=== PATIENT | female | born 1970 | race Caucasian/White ===

== ENCOUNTER → 2020-03-23 12:35 | Outpatient (CLI) | payer BC, OTHER, SELFPAY ==
--- NOTE | ~2020-03-23 | US_ITS ---
US thyroid INDICATION: Iodine deficiency. Goiter. TECHNIQUE: Real-time sonographic images of the thyroid gland were obtained. COMPARISON: No prior studies for comparison. FINDINGS: The right thyroid lobe measures 6.2 x 1.6 x 1.8 cm. The left thyroid lobe measures 4.4 x 1 .3 x 1.6 cm. There is normal echotexture and echogenicity throughout the thyroid gland. In the right lobe there is a 2.2 x 1.4 x 1.7 cm heterogeneous predominantly hypoechoic, solid, wider than tall, lo bulated mass with microcalcifications, TR5. In the left lobe there are 2 small cysts, largest measuri ng 4 mm, likely benign. IMPRESSION: 1. 2.2 cm right thyroid mass, TR 5. Ultrasound-guided fine-needle aspiration biopsy recommended. Reviewed, dictated and finalized at location B. IMPRESSION: 1. 2.2 cm right thyroid mass, TR 5. Ultrasound-guided fine-needle aspiration b iopsy recommended.
== END ==
PROVIDERS: PCP Family Medicine; Visit Provider Family Medicine
DX: E01.0 Iodine-deficiency related diffuse (endemic) goiter (principal)
CPT/HCPCS: 76536

== ENCOUNTER → 2020-07-04 09:15 | Outpatient (CLI) | payer OTHER, SELFPAY ==
--- NOTE | ~2020-07-04 | US_ITS ---
EXAMINATION: US pelvic complete w TV EXAM DATE: 07/04/2020 09:45 INDICATION: Enlarged uterus . Breast cancer 2017 on tamoxifen. TECHNIQUE: Pelvic transabdominal and transvaginal sonogram was performed. There are multiple graysca le and Doppler images available for interpretation. There is no prior study for comparison. FINDINGS: Uterus measures 11.5 x 3.6 x 4.7 cm, and is morphologically normal. Endometrial stripe me asures 6 mm, within normal limits. There are nabothian cysts. There is no free pelvic fluid. Right adnexa: The ovary is not identified. There is no adnexal mass. Left adnexa: The ovary is not identified. There is no adnexal mass. IMPRESSION: 1. Unremarkable pelvic ultrasound exam. Reviewed, dictated and finalized at location A.
== END ==
PROVIDERS: PCP Family Medicine; Visit Provider Nurse Practitioner
DX: N85.2 Hypertrophy of uterus (principal)
CPT/HCPCS: 76830; 76856

== ENCOUNTER 2022-09-23 14:27 | Outpatient (CLI) | payer BC, SELFPAY ==
--- NOTE | ~2022-09-23 | DEXA_ITS ---
Bone Density Report Name: PATRICIA FERREIRA Age: 52 Sex: Female Ethnicity: White Date of : 1970 Indication: postmenopausal; screening for osteoporosis; cancer; Referring Provider: UNKNOWN, UNKNOWN Study: Bone densitometry was performed. Exam Date: September 23, 2022 Accession number: [id number] Bone Density: Region BMD T-score Z-score Classification AP Spine(L1-L4) 0.933 -1.0 -0.2 Normal Femoral Neck (Left) 0.747 -0.9 0.0 Normal Total Hip (Left) 0.931 -0.1 0.5 Normal Femoral Neck (Right) 0.802 -0.4 0.5 Normal Total Hip (Right) 0.930 -0.1 0.5 Normal Total Hip Mean 0.931 -0.1 0.5 Normal World Health Organization criteria for BMD impression classify patients as: Normal (T-score at or above -1.0), Osteopenia (T-score between -1.0 and -2.5), or Osteoporosis (T-score at or below -2.5). 10-year Fracture Risk: FRAX not reported because: All T-scores for Spine Total, Hip Total, Femoral Neck at or above -1.0 Clinical Information Provided by Patient: Has used the following medications: Vitamin D, Tamoxifin Has the following medical conditions: Cancer Patient maximum height was 65.5 Menopause Age: 46 No regular weight bearing exercise Drinks caffeinated beverages Onset of menses at age 12 Number of children 2 Impression: The patient has normal bone mass. Discussion: BONE DENSITY IS ABOVE THE MINIMUM DESIRABLE LEVEL AT ALL SKELETAL SITES TESTED. This patient?s bone mineral density is above the minimum desirable level (T-score -1.0 or better) at all sites measured. The patient should follow a healthful lifestyle (good nutrition with adequate calcium and vitamin D, and appropriate weight-bearing exercise). Follow-Up: Consider repeating this study in 5 years or sooner if there is some new clinical indication. Reported by: SANDRA on 09/23/2022 2:59:00 PM. Reviewed, dictated and finalized at location [facility] DAVIES
== END 2022-09-23 14:28 | disposition home or self-care (01) ==
PROVIDERS: PCP Family Medicine
DX: Z85.3 Personal history of malignant neoplasm of breast (principal); Z79.810 Long term (current) use of selective estrogen receptor modulators (SERMs); Z12.11 Encounter for screening for malignant neoplasm of colon; Z78.0 Asymptomatic menopausal state
CPT/HCPCS: 77080

== ENCOUNTER 2025-02-09 20:43 | Emergency (ER) | payer BC, SELFPAY ==
--- OUTSIDE RECORDS SUMMARY | 2025-02-09 20:45 | XMS_ITS | Clinical Summary ---
Author Organization [facility] Address [address] [place] [address] Care Team Providers Care Remote Ruby On Rails Developer Name Role Phone Barbara Coleman MD Primary Care Provider [phone] Ruy Mcallister MD Unavailable Barbara Wakefield PhD Unavailable [phone] Cristopher Buckner MD Unavailable Tita Braswell MD Unavailable [phone] Tram Cuba NP Unavailable [phone] Allergies Active Allergy Reactions Criticality Noted Date Comments Adhesive Redness Low 04/09/2020 Inflammation at connection sites Sulfa (Sulfonamide Antibiotics) Hives Medium 01/26/2015 Reaction: HIVES, Medications montelukast (SINGULAIR) 10 mg tablet Take 1 tablet (10 mg total) by mouth nightly allergies 8 Active cholecalciferol (VITAMIN D-3) 2000 unit capsuleIndicati ons:Osteoporosi s 1 capsule (2,000 Units total) 2 (two) times a day Active lisinopril-hydr oCHLOROthiazide (PRINZIDE,ZESTO RETIC) 10-12.5 mg per tabletIndicatio ns:hypertension every morning 2 9 Active albuterol 2.5 mg /3 mL (0.083 %) nebulizer solution Inhale 3 mL every 8 (eight) hours as needed for shortness of breath (related to allergies) 9 Active cetirizine (ZyrTEC) 10 mg tabletIndicatio ns:Allergic Rhinitis Take 1 tablet (10 mg total) by mouth every morning Active fenofibrate (TRIGLIDE) 160 mg tablet Take 1 tablet (160 mg total) by mouth daily Active Wixela Inhub 250-50 mcg/dose diskus inhaler Inhale 1 puff 2 (two) times a day 2 Active calcium carbonate (OS-FIDEL) 1,500 mg (600 mg elemental) tablet Take 1 tablet (1,500 mg total) by mouth Active rosuvastatin (CRESTOR) 10 mg tablet Take 1 tablet (10 mg total) by mouth daily 4 Active tamoxifen (NOLVADEX) 20 mg tabletIndicatio ns:Personal history of breast cancer,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 modulators (serms) Take 1 tablet (20 mg total) by mouth nightly 90 tablet 3 4 Active Active Problems Problem Noted Date Diagnosed Date watermaster (current) use of s elective estrogen receptor modulators (serms) 03/20/2018 Encounter for follow-up surveillance of breast c ancer 10/02/2017 History of breast cancer 10/12/2016 Cancer Staging:Clinical stage from 10/05/2016:Stage IA(cT1, cN0, cM0, G1, ER+, IN+, HER2-) - Signed by Barbara Wakefield, PhD on 03/25/2019 Pathologic stage from 10/27/2018: pT0, pN0(sn), cM0, G1, ER+, IN+, HER2- - Signed by Barbara Wakefield, PhD on 03/25/2019 Resolved Problems Problem Noted Date Diagnosed Date Resolved Date Screening for colon cancer 08/11/2022 0 05/02/2023 Overview (08/11/2022): Added automatically from request for surgery [id number] Thyroid nodule 04/07/2020 06/04/2021 Overview (04/07/2020): Added automatically from request for surgery [id number] Thyroid mass 04/02/2020 06/04/2021 Overview (04/29/2020): PROCEDURE PERFORMED (05/03/20, [place]) Right hemithyroidectomy. Immunizations Immunization Administration Dates Next Due Influenza, Quadrivalent, Spl it, Preservative Free, Intramuscular 06/22/2020,06/21/2018 Juliet (J&J) SARS-CoV-2 Vaccination 11/13/2020 Surgical History Surgery Date Site/Laterality Comments SECTION 1996, 2000 BREAST LUMPECTOMY 09/11/2016 - 09/10/2017 Left TONSILLECTOMY 09/11/1973 - 09/10/1974 THYROIDECTOMY, PARTIAL 04/11/2020 - 05/11/2020 Medical History Medical History Date Comments Breast cancer (HCC) Hypertension Thyroid disease Thyroid mass 04/02/2020 PROCEDURE PERFOR MED (05/03/20, [place]) Right hemithyroidectomy. Thyroid nodule 04/07/2020 Added automatica lly from request for surgery [id number] Thyroid cyst Allergies H/O seasonal allergies Screening for colon cancer 08/11/2022 Added automatically from request for surgery [id number] Family History Medical History Relation Name Comments blocked arteries Father pericarditis Father Lung cancer Maternal Grandfather smoker Skin cancer Maternal Grandfather Heart attack Maternal Grandmother Ovarian cancer Maternal Grandmother Hypertension Mother Uterine cancer Mother's Sister Heart attack Paternal Grandfather Heart failure Paternal Grandmother No Known Problems Sister Anesthesia problems Neg Hx Relation Name Status Comments Father Alive Maternal Grandfather Maternal Grandmother Mother Alive Mother's Sister Alive Paternal Grandfather Paternal Grandmother Sister Alive Social History Tobacco Use Types Packs/Day Years Used Date Smoking Tobacco: Never Smokeless Tobacco: Never Tobacco Cessation:Counseling Given: Not Answered Alcohol Use Standard Drinks/Week Comments Yes 0 (1 standard drink = 0.6 oz pur e alcohol) 1 glass of wine a month AUDIT-C Answer Date Recorded Q1: How often do you have a drink containing alc ohol? Monthly or less 11/15/2022 Q2: How many drinks containi ng alcohol do you have on a typical day when you are drinking? 1 or 2 11/15/2022 Q3: How often do you have si x or more drinks on one occasion? Never 11/15/2022 Personal Safety Answer Date Recorded Getting School Help Needed Denies 08/26 Comments No Sex and Gender Information Value Date Recorded Sex Assigned at Not on file Legal Sex Female 6:36 AM ACCOUNT DIRECTOR Gender Identity Female 05/14/2020 6:32 PM CDT Sexual Orientation Straight 05/14/2020 6: 32 PM CDT Obstetrics History Last Filed Vital Signs Vital Sign Reading Time Taken Comments Blood Pressure 128/83 05/21/2024 2:52 PM CDT Pulse 78 05/21/2024 2:52 PM CDT Temperature 36.7 C (98 F) 05/21/2024 2:52 PM CDT Respiratory Rate 18 05/21/2024 2:52 PM CDT Oxygen Saturation 97% 05/21/2024 2:5 2 PM CDT Inhaled Oxygen Concentration - - Weight 83.8 kg (184 lb 12.8 oz) 024 2:52 PM CDT with shoes Height 165.1 cm (5' 5) 05/21/2024 2:52 PM CDT Body Mass Index 30.75 05/21/2024 2:52 PM CDT Plan of Treatment Scheduled Procedures Name Priority Associated Diagnoses Date/Ti me COLONOSCOPY Personal history of breast cancer 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 modulators (serms) Encounter for follow-up surveillance of breast cancer Screen for colon cancer Encounter for screening colonoscopy Health Maintenance Due Date Last Done Comments Cervical Cancer Screening 1970 Depression Screening 1970 Hepatitis C Screening 1970 DTaP/Tdap/Td Vaccine (1 - Tdap) 1981 Hepatitis B Screening 1988 Regular Well Visit/Exam 18-64 1988 Pneumococcal vaccine <65 (1 of 2 - PCV) 1989 Zoster Vaccine (1 of 2) 1989 Covid-19 Vaccine (3 - 2023-2 5 season) 2024 08/29/2021, 11/13/2020 Breast Cancer Screening-Mammogram 11/06/2025 11/06/2024, 11/06/2023, 11/04/2022, Additional history exists Colon Cancer Screening-Colonoscopy 11/16/20272022 Influenza Vaccine Completed 08/21/2024, , 06/21/2018 Procedures Procedure Name Priority Date/Time Associated Diagnosis Comments SCREENING MAMMOGRAM BILATERAL W PEEWEE Schedule Routine, Read Routine (OP Routine) 11/06/2024 3:25 PM ACCOUNT DIRECTOR Screening mammogram, encounter for COLONOSCOPY 11/15/2022 8:55 AM ACCOUNT DIRECTOR from Last 3 Months or Most Recently Relevant to Health Maintenance Results * Screening Mammogram Bilateral W Peewee (11/06/2024 3:25 PM ACCOUNT DIRECTOR) Anatomical Region Laterality Modality Breast Bilateral Mammography Narrative 11/07/2024 3:58 PM ACCOUNT DIRECTOR Mammogram Technique: Bilateral Digital Breast Tomosynthesis, Bilateral C-view 2D Screening mammogram. Views obtained: bilateral craniocaudal and bilateral mediolateral oblique. Computer Aided Detection was performed. Mammogram Findings: The present examination has been compared to prior imaging studies performed at [facility] on 11/02/2021, 11/03/2022 and 11/06/2023. There are scattered areas of fibroglandular density. There are post breast conservation therapy changes in the left breast. There are no significant changes from the prior study. There is no suspicious abnormality in either breast. Impression: There is no mammographic evidence of malignancy. Annual screening mammography is recommended. OVERALL FINAL ASSESSMENT: BI-RADS CATEGORY 2: Benign. Procedure Note Fabi Morales MD - 11/07/2024 Mammogram Technique: Bilateral Digital Breast Tomosynthesis, Bilateral C-view 2D Screening mammogram. Views obtained: bilateral craniocaudal and bilateral mediolateral oblique. Computer Aided Detection was performed. Mammogram Findings: The present examination has been compared to prior imaging studies performed at [facility] on 11/02/2021, 11/03/2022 and 11/06/2023. There are scattered areas of fibroglandular density. There are post breast conservation therapy changes in the left breast. There are no significant changes from the prior study. There is no suspicious abnormality in either breast. Impression: There is no mammographic evidence of malignancy. Annual screening mammography is recommended. OVERALL FINAL ASSESSMENT: BI-RADS CATEGORY 2: Benign. us Self Screening Mammogram IMG MAMMO PROCEDURES Fi nal Result * COLONOSCOPY (11/15/2022 8:55 AM ACCOUNT DIRECTOR) Anatomical Region Laterality Modality Other Narrative Procedure Note Umair Estrada MD - 11/15/2022 8:[address] [facility] Patient Name: Raquel Madrigal Procedure Date: 11/15/2022 8:55 AM Date of : 1970 Admit Type: Outpatient Age: 52 Gender: Female Attending MD: Umair Estrada M.D. Room: [facility] ENDOSCOPY ROOM 06 Note Status: Finalized Procedure: Colonoscopy Indications: Screening for colorectal malignant neoplasm Referring MD: Providers: Umair Estrada M.D. Medicines: Monitored Anesthesia Care Complications: No immediate complications. Estimated Blood Loss: Estimated blood loss: none. Procedure: The benefits, risks and alternatives of theprocedure and sedation were discussed and informed consentwas obtained. All questions were answered. Please referto the signed informed consent document in the medical record. The scope was passed under direct vision.The [id number]-[id number] colonoscope was introduced through theanus and advanced to the cecum, identified byappendiceal orifice and ileocecal valve. The colonoscopy was performed without difficulty. The patient tolerated the procedure well. The quality of the bowel preparation was good. Scope withdrawal time was 11 minutes. Prep was administered in a split dose. Findings: The perianal and digital rectal examinations were normal. A diminutive polyp was found in the cecum. The polyp was removed witha cold biopsy forceps. Resection and retrieval were complete. A diminutive polyp was found in the sigmoid colon. The polyp wasremoved with a cold biopsy forceps. Resection and retrieval were complete. A few small-mouthed diverticula were found in the transverse colon. Non-bleeding internal hemorrhoids were found during retroflexion. The hemorrhoids were small. The exam was otherwise without abnormality. Impression: - One diminutive polyp in the cecum, removed with a cold biopsy forceps. Resected and retrieved. - One diminutive polyp in the sigmoid colon,removed with a cold biopsy forceps. Resected andretrieved. - Diverticulosis in the sigmoid colon and in the transverse colon. - Non-bleeding internal hemorrhoids. - The examination was otherwise normal. Recommendation: - Patient has a contact number available for emergencies. The signs and symptoms of potential delayed complications were discussed with thepatient. Return to normal activities tomorrow. Written discharge instructions were provided to thepatient. - High fiber diet. - Continue present medications. - Await pathology results. - Repeat colonoscopy in 5 years for surveillance. Umair Estrada M.D. Umair Estrada M.D. 11/15/2022 9:20:25 AM . Number of Addenda: 0 Note Initiated On: 11/15/2022 8:55 AM Recognized by the [employer] for promoting quality in endoscopy Umair Estrada MD ENDOSCOPY PROCEDURES Final Resul t from Last 3 Months or Most Recently Relevant to Health Maintenance Insurance ANTHEM ACCESS CHOICE BLUE ACC CHOICE OOS ANTHEM ACCESS CHOICE ANTHEM ACCESS CHOICE Care Teams Remote Ruby On Rails Developer Relationship Specialty Start Date End Date Barbara Coleman MD PCP - General 10/27/16 Ruy Mcallister MD [address] [facility] [address] [place] [address] Radiation Oncologist Radiation Oncology 03/25/19 Barbara Wakefield, PhD [address] [place] [address] Nurse Practitioner Radiation Oncology 03/25/19 Cristopher Buckner MD [address] [place] [address] Surgeon Surgical Oncology 03/25/19 Tita Braswell MD [address] [place] [address] Referring Physician Gynecology 10/26/20 Tram Cuba NP [address] [place] [address] Nurse Practitioner Medical Oncology 03/23/21
--- OUTSIDE RECORDS SUMMARY | 2025-02-09 20:45 | XMS_ITS | Encounter Summary ---
Author Organization [facility] Address [address] [place] [address] Care Team Providers Care Interior Design Director Name Role Phone Barbara Coleman MD Primary Care Provider [phone] Ruy Mcallister MD Unavailable Barbara Wakefield PhD Unavailable [phone] Jeromy Guillermo MD Unavailable Micki Amaot Unavailable [phone] Cristopher Buckner MD Unavailable [phone] Tita Braswell MD Unavailable [phone] Tram Cuba NP Unavailable [phone] Encounter Details Date Type Department Care Team (Late st Contact Info) Description 09/13/2018 Telephone [facility] Radiation Oncology [address] [facility] [place] [address] Elsi Epperson CMA Social History Tobacco Use Types Packs/Day Years Used Date Smoking Tobacco: Never Smokeless Tobacco: Never Alcohol Use Standard Drinks/Week Comments Yes 0 (1 standard drink = 0.6 oz pur e alcohol) occasionally Comments Unknown Sex and Gender Information Value Date Recorded Sex Assigned at Not on file Legal Sex Female 6:36 AM CELL TESTER Gender Identity Female 05/14/2020 6:32 PM CDT Sexual Orientation Straight 05/14/2020 6: 32 PM CDT documented as of this encounter Plan of Treatment Scheduled Procedures Name Priority Associated Diagnoses Date/Ti me COLONOSCOPY Personal history of breast cancer [facility] (current) use of selective estrogen receptor modulators (serms) Encounter for follow-up surveillance of breast cancer Screen for colon cancer Encounter for screening colonoscopy documented as of this encounter Visit Diagnoses Not on filedocumented in this encounter Care Teams Interior Design Director Relationship Specialty Start Date End Date Barbara Coleman MD PCP - General 10/27/16 Ruy Mcallister MD [address] [facility] [address] [place] [address] Radiation Oncologist Radiation Oncology 03/25/19 Barbara Wakefield, PhD [address] [facility] [address] [place] [address] Nurse Practitioner Radiation Oncology 03/25/19 Jeromy Guillermo MD [address] [facility] [address] [place] [address] Medical Oncologist/Church Administrator Medical Oncology 03/25/19 03/22/21 Micki Amato, OUTREACH REP [address] [facility] [address] [place] [address] Nurse Practitioner Certified Clinical Nurse Specialist 03/25/19 09/29/21 Cristopher Buckner MD [address] [facility] [address] [place] [address] Surgeon Surgical Oncology 03/25/19 Tita Braswell MD [address] [place] [id number] Referring Physician Gynecology 10/26/20 Tram Cuba NP [address] [place] [address] Nurse Practitioner Medical Oncology 03/23/21 documented as of this encounter
--- OUTSIDE RECORDS SUMMARY | 2025-02-09 20:45 | XMS_ITS | Referral Summary ---
Author Organization [facility] Address [address] [place] [address] Care Team Providers Care Shadow Graph Weight Operator Name Role Phone Barbara Coleman MD Primary Care Provider [phone] Ruy Mcallister MD Unavailable Barbara Wakefield PhD Unavailable [phone] Cristopher Buckner MD Unavailable [phone] Tita Braswell MD Unavailable [phone] Tram Cuba NP Unavailable Allergies Active Allergy Reactions Criticality Noted Date [...] 20 mg tabletIndicatio ns:Personal history of breast cancer,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elective estrogen receptor modulators (serms) Take 1 tablet (20 mg total) by mouth nightly 90 tablet 3 4 Active Active Problems Problem Noted Date Diagnosed Date 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 elective estrogen receptor modulators (serms) 03/20/2018 Encounter for follow-up surveillance of breast c ancer 10/02/2017 History of breast cancer 10/12/2016 Cancer Staging:Clinical stage from 10/05/2016:Stage IA(cT1, cN0, cM0, G1, ER+, CA+, HER2-) - Signed by Barbara Wakefield, PhD on 03/25/2019 Pathologic stage from 10/27/2018: pT0, pN0(sn), cM0, G1, ER+, CA+, HER2- - Signed by Barbara Wakefield, PhD on 03/25/2019 Resolved Problems Problem Noted Date Diagnosed Date Resolved Date Screening for colon cancer 08/11/2022 0 05/02/2023 Overview (08/11/2022): Added automatically from request for surgery [id number] Thyroid nodule 04/07/2020 06/04/2021 Overview (04/07/2020): Added automatically from request for surgery [id number] Thyroid mass 04/02/2020 06/04/2021 Overview (04/29/2020): PROCEDURE PERFORMED (05/03/20, Arash) Right hemithyroidectomy. Immunizations Immunization Administration Dates Next Due Influenza, Quadrivalent, Spl it, Preservative Free, Intramuscular 06/22/2020,06/21/2018 Juliet (J&J) SARS-CoV-2 Vaccination 11/13/2020 Social History Tobacco Use Types Packs/Day Years [...] on file Legal Sex Female 6:36 AM COMPRESSOR SERVICE TECHNICIAN Gender Identity Female 05/14/2020 6:32 PM CDT Sexual Orientation Straight 05/14/2020 6: 32 PM CDT Last Filed Vital Signs Vital Sign Reading [...] me COLONOSCOPY Personal history of breast cancer 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elective estrogen receptor modulators (serms) Encounter for follow-up surveillance of breast cancer Screen for colon cancer Encounter for screening colonoscopy Procedures Procedure Name Priority Date/Time Associated Diagnosis Comments SCREENING MAMMOGRAM BILATERAL W PEEWEE Schedule Routine, Read Routine (OP Routine) 11/06/2024 3:25 PM COMPRESSOR SERVICE TECHNICIAN Screening mammogram, encounter for COLONOSCOPY 11/15/2022 8:55 AM COMPRESSOR SERVICE TECHNICIAN from Last 3 Months or Most Recently Relevant to Health Maintenance Results * Screening Mammogram Bilateral W Peewee (11/06/2024 3:25 PM COMPRESSOR SERVICE TECHNICIAN) Anatomical Region Laterality Modality Breast Bilateral Mammography Narrative 11/07/2024 3:58 PM COMPRESSOR SERVICE TECHNICIAN Mammogram Technique: Bilateral Digital Breast Tomosynthesis, Bilateral C-view 2D Screening mammogram. Views obtained: bilateral craniocaudal and bilateral mediolateral oblique. Computer Aided Detection was performed. Mammogram Findings: The present examination has been compared to prior imaging studies performed at [facility] on 11/02/2021, 11/03/2022 and 11/06/2023. There are [...] compared to prior imaging studies performed at [facility] on 11/02/2021, 11/03/2022 and 11/06/2023. There are [...] nal Result * COLONOSCOPY (11/15/2022 8:55 AM COMPRESSOR SERVICE TECHNICIAN) Anatomical Region Laterality Modality Other Narrative Procedure Note Umair Estrada MD - 11/15/2022 8:55 AM CST [facility] ENDOSCOPY Patient Name: Raquel Madrigal Procedure Date: 11/15/2022 8:55 AM Date of : 1970 Admit Type: Outpatient Age: 52 Gender: Female Attending MD: Umair Estrada M.D. Room: [facility] ENDOSCOPY ROOM 06 Note Status: Finalized Procedure: [...] The scope was passed under direct vision.The [id number]-[id number] colonoscope was introduced through theanus and advanced [...] On: 11/15/2022 8:55 AM Recognized by the [employer] for promoting quality in endoscopy us Umair Estrada MD ENDOSCOPY PROCEDURES Final Resul t from Last 3 Months or Most Recently Relevant to Health Maintenance Insurance ANTHEM ACCESS CHOICE [place] ACC CHOICE OOS ANTHEM ACCESS CHOICE ANTHEM ACCESS CHOICE Care Teams Shadow Graph Weight Operator Relationship Specialty Start Date End Date Barbara Coleman MD PCP - General 10/27/16 Ruy Mcallister MD [address] [facility] [address] [place] [address] Radiation Oncologist Radiation Oncology 03/25/19 Barbara Wakefield, PhD [address] [facility] [address] [place] [address] Nurse Practitioner Radiation Oncology 03/25/19 Cristopher Buckner MD [address] [facility] [address] [place], [place] [id number] Surgeon Surgical Oncology 03/25/19 Tita Braswell MD [address] [place] [address] Referring Physician Gynecology 10/26/20 Tram Cuba NP [address] [place] [address] Nurse Practitioner Medical Oncology 03/23/21
--- OUTSIDE RECORDS SUMMARY | 2025-02-09 20:45 | XMS_ITS | Clinical Summary ---
Author Organization [facility] Address [address] [place] [address] Care Team Providers Care Radio Adjuster Name Role Phone Yanet Coleman APRN-DAYAMI Primary Care Provider Charisse vailable Source Comments [facility],non-owned Affiliates and Associated Physician Practices is amultiple site organization consisting of ambulatory clinics and hospital sitesin [place], [place], [place] and [place]. This disclosure is being madepursuant to the Care Everywhere program and may not contain all information available regarding this patient. Last updated 18.[facility] [employer] Allergies Active Allergy Reactions Criticality Noted Date Comments Sulfa Drugs Urticaria Medium 01/12/2019 Medications * Be aware that medications may not be up to date on this document. Alwaysverify current medications with the patient. amLODIPine (NORVASC) 10 MG tablet Take 10 mg by mouth once daily Active lisinopril (PRINIVIL; ZESTRIL) 2.5 MG tablet Take 2.5 mg by mouth once daily Active Cetirizine HCl (ZYRTEC PO) Active Montelukast Sodium (SINGULAIR PO) Active beclomethasone dipropionate (QVAR) 80 MCG/ACT inhaler Inhale 1 puff by mouth 2 times daily Active tamoxifen (NOLVADEX) 10 MG tablet Take 10 mg by mouth 2 times daily Active vitamin D, cholecalciferol, 2000 units tablet Take 2,000 Units by mouth once daily Active benzonatate (TESSALON) 200 MG capsuleIndication s:Cough Take 1 capsule by mouth 3 times daily as needed for Cough 30 capsule 9 Active Cetirizine HCl (ZYRTEC ALLERGY PO) Active fluticasone hfa 110 (FLOVENT HFA) 110 MCG/ACT inhaler Active LISINOPRIL-HYDROC HLOROTHIAZIDE PO Act hudson montelukast (SINGULAIR) 10 MG tablet Active Tamoxifen Citrate Micronized POWD Acti ve Social History Tobacco Use Types Packs/Day Years Used Date Smoking Tobacco: Never Smokeless Tobacco: Never Comments Unknown Sex and Gender Information Value Date Recorded Sex Assigned at Female 02/15/2021 8:44 AM CDT Legal Sex Female 6:34 PM CDT Gender Identity Female 02/15/2021 8:44 AM CDT Sexual Orientation Straight 02/15/2021 8: 44 AM CDT Last Filed Vital Signs Vital Sign Reading Time Taken Comments Blood Pressure 120/66 02/13/2021 2:17 PM CDT Pulse 70 02/13/2021 2:17 PM CDT Temperature 36.8 C (98.3 F) 02/13/2021 2:17 PM CDT Respiratory Rate 20 02/13/2021 2:17 PM CDT Oxygen Saturation 97% 01/12/2019 10:06 AM CDT Inhaled Oxygen Concentration - - Weight 86.2 kg (190 lb) 01/12/2019 10:06 AM CDT Height 162.6 cm (5' 4) 01/12/2019 10:06 AM CDT Body Mass Index 32.61 01/12/2019 10:06 AM CDT Plan of Treatment Health Maintenance Due Date Last Done Comments COLOGUARD (AGES 45-75) - COL ON CA SCREENING 1970 COLON MONITORING 1970 COLONOSCOPY - COLON CA SCREENING 1970 CT COLONOGRAPHY - COLON CA SCREENING 1970 Colorectal Cancer Screening 1970 FIT - COLON CA SCREENING 1970 FLEX SIG - COLON CA SCREENING 1970 LIPID TESTING 1970 MAMMOGRAM 1970 HIV SCREENING 1985 HEPATITIS C SCREENING 06/22/1988 DTAP/TDAP/TD VACCINES (1 - Tdap) 1989 HEPATITIS B VACCINE (1 of 3 - 19+ 3-dose series) 1989 SCREENING FOR DIABETES 01/12/2019 PNEUMOCOCCAL VACCINE 50+ (1 of 1 - PCV) 2020 ZOSTER VACCINE (1 of 2) 2020 COVID-19 VACCINE (2 - 2023-2 5 season) 2024 11/13/2020 DEPRESSION SCREENING 09/11/2024 INFLUENZA VACCINE (Season Ended) 2025 06/22/2020, 06/21/2018 HIB VACCINE Aged Out No longer eligi ble based on patient's age to complete this topic HPV VACCINE Aged Out No longer eligi ble based on patient's age to complete this topic MENINGOCOCCAL (Group B) VACCINE SHARED DECISION-MAKING Aged Out No longer eligible based on patient's age to complete this topic MENINGOCOCCAL GROUPS A/C/Y/W VACCINE Aged Out No longer eligible b ased on patient's age to complete this topic Insurance [facility] Address: [address] [address] [place] [address] [facility] Care Teams Radio Adjuster Relationship Specialty Start Date End Date Yanet Coleman APRN-DAYAMI PCP - General Nurse Practitioner 01/12/19
--- OUTSIDE RECORDS SUMMARY | 2025-02-09 20:45 | XMS_ITS | Continuity of Care Document ---
Author Organization [facility] Address [address] [place] [address] Phone Care Team Providers Care Delivery Merchandiser Name Role Phone Sravan Aviles MD Unavailable Unavailable Allergies, Adverse Reactions, Alerts Substance Reaction Status Criticality Sulfa (Sulfonamide Antibiotics) Active No Information Medications Medication Instructions Dosage Effective Dates (start - stop) Status Comments amlodipine 5 mg tablet take 1 tablet by oral route every day 5 MG - Active Zyrtec 10 mg tablet take 1 tablet by ora l route every day 10 MG - Active Singulair 10 mg tablet take 1 tablet by oral route every day in the evening 10 MG - Active Qvar 80 mcg/actuation Metered Aerosol oral inhaler inhale 2 puff by inhalation route 2 times every day - Active tamoxifen 20 mg tablet take 1 tablet by oral route every day 20 MG - Active Procedures Procedure Date OFFICE/OUTPATIENT VISIT EST OFFICE/OUTPATIENT VISIT [facility] Advance Directives Directive Yes / No Effective Date File Name No Information Encounters Encounter Description Practice Location Reason(s) For Visit Diagnoses Date Provider Providers Copied on Encounter [facility], [address], [place], [address], [place] tel:[phone] [facility] No Information 7 Stefan Hinson. [address], [place], [place], [address] . tel: [phone] OFFICE/OUTPA TIENT VISIT EST [facility], [address], [place], [address], [place] tel:[phone] [facility] Left shoulder tendinitisOther cervical disc degeneration at C6-C7 level 3-201 7 Stefan Hinson. [address], [place], [place], [address] . tel: [phone] OFFICE/OUTPA TIENT VISIT [facility], [address], [place], [address], [phone] [facility] Body mass index (BMI) 33.0-33.9, adultLeft shoulder tendinitis 2201 7 Stefan Hinson. [address], [place], [place], [address] . tel: [phone] Family History Family Member Type Diagnosis Age At Onset Sister Problem (finding) Alive and well Payers Payer name Insurance type Covered republican ID Siobhan dukes(s) Derrek Open Access Plus E2 OT [id number] Social History Type Description Quantity Date Captured Comments Alcohol Use Details Unknown Caffeine Use Details Unknown Tobacco Use Status No Information Smoking Status No Information Sex Female Chief Complaint And Reason For Visit No Information Reason For Referral Reason For Referral No Information Plan Of Treatment Date Type Action Status Referral Ordered: RADEX SPI CRV 2/3 VIEWS ordered Referral Ordered: RADEX OSMEL COMPL MINIMUM 2 VIEWS LT ordered History Of Present Illness Encounter Date Complaint History Of Prese nt Illness No Information Functional Status Date Functional Assessmen t No Information Instructions Date Instruction Additional Infor mation Giving encouragement to exercise Related to Body mass index (BMI) 33.0-33.9, adult Apply ice as tolerated. Related to Left shoulder tendinitis Home exercise program Related to Left shoulder tendinitis Assessments Type Assessment Date No Information Patient Care Teams Name Effective Dates (start - stop) Status Members No Information
--- OUTSIDE RECORDS SUMMARY | 2025-02-09 20:45 | XMS_ITS | Continuity of Care Document ---
Author Organization [facility] Address [address] [place] [address] Phone Care Team Providers Care Loader Name Role Phone Reynoso OD, Rodolfo Unavailable Unavailable Procedures Procedure Date Eye Exam & Treatment Refraction Eye Exam Established Pt Advance Directives Directive Yes / No Effective Date File Name No Information Encounters Encounter Description Practice Location Reason(s) For Visit Diagnoses Date Provider Providers Copied on Encounter [facility], [address] [place] [address] [address], [place], [place], [address], tel:[phone] [address] [facility] No Information 2-200 9 Reynoso OD Rodolfo. [address], [place], [place], [facility], . tel:[phone] [facility], [address] [place] [address] [address], [place], [place], [address], tel:[phone] [facility] No Information 4-200 8 Reynoso OD Rodolfo. [address], [place], [address], [place]. tel:[phone] Family History Family Member Type Diagnosis Age At Onset No Information Payers Payer name Insurance type Covered green party ID Authoriza tion(s) BCBS [place] Out Of [place] [id number] Social History Type Description Quantity Date Captured Comments Sex Female Smoking Status No Information Chief Complaint And Reason For Visit No Information Reason For Referral Reason For Referral No Information History Of Present Illness Encounter Date Complaint History Of Prese nt Illness No Information Functional Status Date Functional Assessmen t No Information Instructions Date Instruction Additional Infor mation No Information Assessments Type Assessment Date No Information Patient Care Teams Name Effective Dates (start - stop) Status Members No Information
[2025-02-09 20:56] VITALS: BP 132/82; PULSE 95; RESP 17; TEMP 36.4; O2SAT 95
--- OUTSIDE RECORDS SUMMARY | 2025-02-09 22:43 | XMS_ITS | Clinical Summary ---
Author Organization [facility] Address [address] [place] [address] Care Team Providers Care Induction Heat Treater Name Role Phone Yanet Coleman APRN-DAYAMI Primary Care Provider Charisse vailable Source Comments [facility],non-owned Affiliates and Associated Physician Practices is amultiple site organization consisting of ambulatory clinics and hospital sitesin [place], [place], [place] and [place]. This disclosure is being madepursuant to the Care Everywhere program and may not contain all information available regarding this patient. Last updated 18.[facility] [employer] Allergies Active Allergy Reactions Criticality Noted Date [...] patient's age to complete this topic Insurance [facility] Care Teams Induction Heat Treater Relationship Specialty Start Date End Date Yanet Coleman APRN-DAYAMI PCP - General Nurse Practitioner 01/12/19
--- OUTSIDE RECORDS SUMMARY | 2025-02-09 22:43 | XMS_ITS | Continuity of Care Document ---
Author Organization [facility] Address [address] [place] [address] Phone Care Team Providers Care Music Grapher Name Role Phone Sravan Aviles MD Unavailable [...] Procedure Date OFFICE/OUTPATIENT VISIT EST OFFICE/OUTPATIENT VISIT [facility] Advance Directives Directive Yes / No Effective Date File Name No Information Encounters Encounter Description Practice Location Reason(s) For Visit Diagnoses Date Provider Providers Copied on Encounter [facility], [address], [place], [address], [place] tel:[phone] [facility] No Information 7 Stefan Hinson. [address], [place], [place], [address] . tel: [phone] OFFICE/OUTPA TIENT VISIT EST [facility], [address], [place], [address], [place] tel:[phone] [facility] Left shoulder tendinitisOther cervical disc degeneration at C6-C7 level 3-201 7 Stefan Hinson. [address], [place], [place], [address] . tel: [phone] OFFICE/OUTPA TIENT VISIT [facility], [address], [place], [address], [phone] [facility] Body mass index (BMI) 33.0-33.9, adultLeft shoulder tendinitis 2201 7 Stefan Hinson. [address], [place], [place], [address] . tel: [phone] Family History Family Member Type Diagnosis Age At Onset Sister Problem (finding) Alive and well Payers Payer name Insurance type Covered constitution party ID Siobhan dukes(s) Derrek Open Access Plus E2 OT [id number] Social History Type Description Quantity Date Captured [...]
--- OUTSIDE RECORDS SUMMARY | 2025-02-09 22:43 | XMS_ITS | Continuity of Care Document ---
Author Organization [facility] Address [address] [place] [address] Phone Care Team Providers Care Reset Merchandiser Name Role Phone Reynoso OD, Rodolfo Unavailable Unavailable Procedures Procedure Date Eye Exam & Treatment Refraction Eye Exam Established Pt Advance Directives Directive Yes / No Effective Date File Name No Information Encounters Encounter Description Practice Location Reason(s) For Visit Diagnoses Date Provider Providers Copied on Encounter [facility], [address] [place] [address] [address], [place], [place], [address], tel:[phone] [address] [facility] No Information 2-200 9 Reynoso OD Rodolfo. [address], [place], [place], [facility], . tel:[phone] [facility], [address] [place] [address] [address], [place], [place], [address], tel:[phone] [facility] No Information 4-200 8 Reynoso OD Rodolfo. [address], [place], [address], [place]. tel:[phone] Family History Family Member Type Diagnosis Age At Onset No Information Payers Payer name Insurance type Covered constitution party ID Authoriza tion(s) BCBS [place] Out Of [place] [id number] Social History Type Description Quantity Date Captured [...]
--- OUTSIDE RECORDS SUMMARY | 2025-02-09 22:43 | XMS_ITS | Clinical Summary ---
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 (serms) Take 1 tablet (20 mg total) by mouth nightly 90 tablet 3 4 Active Active Problems Problem Noted Date Diagnosed Date 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 (serms) 03/20/2018 Encounter for follow-up surveillance of breast c ancer 10/02/2017 History of breast cancer 10/12/2016 Cancer Staging:Clinical stage from 10/05/2016:Stage IA(cT1, cN0, cM0, G1, ER+, HI+, HER2-) - Signed by Barbara Wakefield, PhD on 03/25/2019 Pathologic stage from 10/27/2018: pT0, pN0(sn), cM0, G1, ER+, HI+, HER2- - Signed by Barbara Wakefield, PhD on 03/25/2019 Resolved Problems Problem Noted Date Diagnosed Date Resolved Date Screening for colon cancer 08/11/2022 0 05/02/2023 Overview (08/11/2022): Added automatically from request for surgery [id number] Thyroid nodule 04/07/2020 06/04/2021 Overview (04/07/2020): Added automatically from request for surgery [id number] Thyroid mass 04/02/2020 06/04/2021 Overview (04/29/2020): PROCEDURE [...] Added automatica lly from request for surgery [id number] Thyroid cyst Allergies H/O seasonal allergies Screening for colon cancer 08/11/2022 Added automatically from request for surgery [id number] Family History Medical History Relation Name Comments [...] on file Legal Sex Female 6:36 AM FERRY PILOT Gender Identity Female 05/14/2020 6:32 PM CDT [...] me COLONOSCOPY Personal history of breast cancer 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 Views obtained: bilateral craniocaudal and bilateral mediolateral oblique. Computer Aided Detection was performed. Mammogram Findings: The present examination has been compared to prior imaging studies performed at [facility] on 11/02/2021, 11/03/2022 and 11/06/2023. There [...] compared to prior imaging studies performed at [facility] on 11/02/2021, 11/03/2022 and 11/06/2023. There [...] nal Result * COLONOSCOPY (11/15/2022 8:55 AM FERRY PILOT) Anatomical Region Laterality Modality Other Narrative Procedure Note Umair Estrada MD - 11/15/2022 8:55 AM CST [facility] ENDOSCOPY Patient Name: Raquel Madrigal Procedure Date: 11/15/2022 8:55 AM Date of : 1970 Admit Type: Outpatient Age: 52 Gender: Female Attending MD: Umair Estrada M.D. Room: [facility] ENDOSCOPY ROOM 06 Note Status: Finalized [...] The scope was passed under direct vision.The [id number] colonoscope was introduced through theanus and advanced [...] On: 11/15/2022 8:55 AM Recognized by the [place] [employer] for promoting quality in endoscopy Umair Estrada MD ENDOSCOPY PROCEDURES Final Resul t from Last 3 Months or Most Recently Relevant to Health Maintenance Insurance ANTHEM ACCESS CHOICE BLUE ACC CHOICE O[place] ANTHEM ACCESS CHOICE ANTHEM ACCESS CHOICE Care Teams Farm Contractor Buyer Relationship Specialty Start Date End Date Barbara Coleman MD PCP - General 10/27/16 Ruy Mcallister MD [address] [facility] [address] [place] [address] Radiation Oncologist Radiation Oncology 03/25/19 Barbara Wakefield, PhD [address] [place] [address] Nurse Practitioner Radiation Oncology 03/25/19 Cristopher Buckner MD [address] [place] [address] Surgeon Surgical Oncology 03/25/19 Tita Braswell MD [address] [place] [address] Referring Physician Gynecology 10/26/20 Tram Cuba NP [address] [place] [address] Nurse Practitioner Medical Oncology 03/23/21
--- OUTSIDE RECORDS SUMMARY | 2025-02-09 22:43 | XMS_ITS | Referral Summary ---
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 (serms) Take 1 tablet (20 mg total) by mouth nightly 90 tablet 3 4 Active Active Problems Problem Noted Date Diagnosed Date 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 (serms) 03/20/2018 Encounter for follow-up surveillance of breast c ancer 10/02/2017 History of breast cancer 10/12/2016 Cancer Staging:Clinical stage from 10/05/2016:Stage IA(cT1, cN0, cM0, G1, ER+, IA+, HER2-) - Signed by Barbara Wakefield, PhD on 03/25/2019 Pathologic stage from 10/27/2018: pT0, pN0(sn), cM0, G1, ER+, IA+, HER2- - Signed by Barbara Wakefield, PhD on 03/25/2019 Resolved Problems Problem Noted Date Diagnosed Date Resolved Date Screening for colon cancer 08/11/2022 0 05/02/2023 Overview (08/11/2022): Added automatically from request for surgery [id number] Thyroid nodule 04/07/2020 06/04/2021 Overview (04/07/2020): Added automatically from request for surgery [id number] Thyroid mass 04/02/2020 06/04/2021 Overview (04/29/2020): PROCEDURE [...] on file Legal Sex Female 6:36 AM FINISHER ACCORDION Gender Identity Female 05/14/2020 6:32 PM CDT [...] me COLONOSCOPY Personal history of breast cancer 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 (serms) Encounter for follow-up surveillance of breast cancer Screen for colon cancer Encounter for screening colonoscopy Procedures Procedure Name Priority Date/Time Associated Diagnosis Comments SCREENING MAMMOGRAM BILATERAL W PEEWEE Schedule Routine, Read Routine (OP Routine) 11/06/2024 3:25 PM FINISHER ACCORDION Screening mammogram, encounter for COLONOSCOPY 11/15/2022 8:55 AM FINISHER ACCORDION from Last 3 Months or Most Recently Relevant to Health Maintenance Results * Screening Mammogram Bilateral W [place] (11/06/2024 3:25 PM FINISHER ACCORDION) Anatomical Region Laterality Modality Breast Bilateral Mammography Narrative 11/07/2024 3:58 PM FINISHER ACCORDION Mammogram Technique: Bilateral Digital Breast Tomosynthesis, Bilateral C-view 2D Screening mammogram. Views obtained: bilateral craniocaudal and bilateral mediolateral oblique. Computer Aided Detection was performed. Mammogram Findings: The present examination has been compared to prior imaging studies performed at [facility] on 11/02/2021, 11/03/2022 and 11/06/2023. [...] compared to prior imaging studies performed at [facility] on 11/02/2021, 11/03/2022 and 11/06/2023. [...] nal Result * COLONOSCOPY (11/15/2022 8:55 AM FINISHER ACCORDION) Anatomical Region Laterality Modality Other Narrative Procedure Note Umair Estrada MD - 11/15/2022 8:55 AM [facility] ENDOSCOPY Patient Name: Raquel Madrigal Procedure Date: 11/15/2022 8:55 AM Date of : 1970 Admit Type: Outpatient Age: 52 Gender: Female Attending MD: Umair Estrada M.D. Room: [facility] ENDOSCOPY ROOM 06 Note Status: Finalized [...] The scope was passed under direct vision.The [id number]-HN620M colonoscope was introduced through theanus and advanced [...] Repeat colonoscopy in 5 years for surveillance. Umari Estrada M.D. Umair Estrada M.D. 11/15/2022 9:20:25 AM . Number of Addenda: 0 Note Initiated On: 11/15/2022 8:55 AM Recognized by the [place] for promoting quality in endoscopy us Umair Estrada MD ENDOSCOPY PROCEDURES Final Resul t from Last 3 Months or Most Recently Relevant to Health Maintenance Insurance ANTHEM ACCESS CHOICE [place] ACC CHOICE [place] ANTHEM ACCESS CHOICE ANTHEM ACCESS CHOICE Care Teams Prepress Technician Relationship Specialty Start Date End Date Barbara Coleman MD PCP - General 10/27/16 Ruy Mcallister MD [address] [facility] [address] [place] [address] Radiation Oncologist Radiation Oncology 03/25/19 Barbara Wakefield, PhD [address] [facility] [address] [place] [address] Nurse Practitioner Radiation Oncology 03/25/19 Cristopher Buckner MD [address] [facility] [address] [place], [place] [id number] Surgeon Surgical Oncology 03/25/19 Tita Braswell MD [address] [place] [address] Referring Physician Gynecology 10/26/20 Tram Cuba NP [address] [place] [address] Nurse Practitioner Medical Oncology 03/23/21
--- OUTSIDE RECORDS SUMMARY | 2025-02-09 22:43 | XMS_ITS | Encounter Summary ---
Author Organization [facility] Healthcare Address [address] [place] [address] Care Team Providers Care Field Engineer Name Role Phone Barbara Coleman MD Primary Care Provider [phone] Ruy Mcallister MD Unavailable Barbara Wakefield PhD Unavailable [phone] Jeromy Guillermo MD Unavailable Micki Amato Unavailable Cristopher Buckner MD Unavailable [phone] Tita Braswell MD Unavailable [phone] Tram Cuba NP Unavailable [phone] Encounter Details Date Type Department Care Team (Late st Contact Info) Description 09/13/2018 Telephone [facility] Radiation Oncology [address] [facility] [place] [address] Elsi Epperson CMA Social History Tobacco Use Types Packs/Day Years Used Date Smoking Tobacco: Never Smokeless Tobacco: Never Alcohol Use Standard Drinks/Week Comments Yes 0 (1 standard drink = 0.6 oz pur e alcohol) occasionally Comments Unknown Sex and Gender Information Value Date Recorded Sex Assigned at Not on file 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 Gender Identity Female 05/14/2020 6:32 PM CDT Sexual Orientation Straight 05/14/2020 6: 32 PM CDT documented as of this encounter Plan of Treatment Scheduled Procedures Name Priority Associated Diagnoses Date/Ti me COLONOSCOPY Personal history of breast cancer shelter (current) use of selective estrogen receptor modulators (serms) Encounter for follow-up surveillance of breast cancer Screen for colon cancer Encounter for screening colonoscopy documented as of this encounter Visit Diagnoses Not on filedocumented in this encounter Care Teams Field Engineer Relationship Specialty Start Date End Date Barbara Coleman MD PCP - General 10/27/16 Ruy Mcallister MD [address] [facility] [address] [place] [id number] Radiation Oncologist Radiation Oncology 03/25/19 Barbara Wakefield, PhD [address] [facility] [address] [place] [id number] Nurse Practitioner Radiation Oncology 03/25/19 Jeromy Guillermo MD [address] [facility] [address] [place] [id number] Medical Oncologist/Front Tender Medical Oncology 03/25/19 03/22/21 Micki Amato, SCREEN PRINTING EQUIPMENT SETTER [address] [facility] [address] [place] [address] Nurse Practitioner Certified Clinical Nurse Specialist 03/25/19 09/29/21 Cristopher Buckner MD [address] [facility] [address] [place] [address] Surgeon Surgical Oncology 03/25/19 Tita Braswell MD [address] [place] [id number] Referring Physician Gynecology 10/26/20 Tram Cuba NP [address] [place] [address] Nurse Practitioner Medical Oncology 03/23/21 documented as of this encounter
--- NOTE | 2025-02-09 22:50 | ED_ITS ---
HPI - Wound/Laceration General Chief Complaint: Wound/Laceration Stated Complaint: laceration to right index/middle fingers Time Seen by Provider: 02/09/25 22:27 Source: patient and family Mode of arrival: ambulatory Limitations: no limitations History of Present Illness HPI narrative: Right hand dominant female presents after accidental laceration overlying right index and right middle fingers while washing a knife in the sink that had been used to cut chicken. Not on anticoagulation. States it has been awhile since tetanus. No SI. 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 Washed it with water initially and used paper towels. Irrigated in triage and dressing applied. Related Data Home Medications ?Medication ?Instructions ?Recorded ?Confirmed ?Last Taken ?Type tamoxifen 20 mg tablet 20 mg PO DAILY 02/16/21 12/03/24 Unknown History calcium carbonate (Calcium 600) 600 mg PO DAILY 11/17/22 12/03/24 Unknown History cholecalciferol (vitamin D3) 50 50 mcg PO BID 11/17/22 12/03/24 Unknown History mcg (2,000 unit) capsule Allergies Allergy/AdvReac Type Severity Reaction Status Date / Time Sulfa (Sulfonamide Allergy Unknown Unknown Verified 02/09/25 20:44 Antibiotics) COUNT INCLUDES THE [facility] Past Medical History Medical History Right hand dominant Prediabetes Hypertriglyceridemia Hypertension Breast cancer Surgical History Surgical History H/O thyroidectomy Family History Family History Other Hypertension Social History Social History (Updated 02/09/25 @ 23:21 by Krissy Hansen MD) Smoking status: Never smoker Second hand tobacco smoke exposure: No Alcohol intake: current Alcohol use details: seldom; socially Substance use: never Substance use type: does not use Lack of Transportation: No Lack of Food: Never True Current Housing: I Have Housing Concerned About Future Housing: No Difficulty Paying Gas/Electric Bills: No Difficulty Paying for Meds: No Currently Unemployed: No Education: High School Diploma/GED Difficulty w/ Childcare or Family Care: No Occupation/Education: occupation 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 HEAD: Normocephalic, atraumatic. EYES: Non injected, non icteric ENT: Nares clear, no rhinorrhea or epistaxis. Gross auditory acuity intact. NECK: Supple. No meningismus. CHEST: Speaking in full sentences. No respiratory distress. HEART: Brisk capillary refill. ABDOMEN: Soft, nondistended. No rigidity or guarding. Not peritoneal EXTREMITIES: Normal range of motion. Shows flexion and extension of digits. SKIN: Warm, dry. Superficial 1cm laceration over right index and superficial 1cm laceration over right middle finger. Neither over joint line. Bleeding well controlled. NEURO: No focal deficits. Alert and oriented. Answering questions. Following commands. Normal speech without aphasia or dysarthria. Sensation intact throughout fingers. PSYCH: Normal mood and affect. Course Vital Signs Vital signs: Vital Signs Temperature 97.5 F L 02/09/25 20:56 Pulse Rate 95 02/09/25 20:56 Respiratory Rate 17 02/09/25 20:56 Blood Pressure 132/82 02/09/25 20:56 Pulse Oximetry 95 02/09/25 20:56 Oxygen Delivery Room Air 02/09/25 20:56 Temperature 97.5 F L 02/09/25 20:56 Pulse Rate 84 02/09/25 23:24 Respiratory Rate 16 02/09/25 23:24 Blood Pressure 128/74 02/09/25 23:24 Pulse Oximetry 99 02/09/25 23:24 Oxygen Delivery Room Air 02/09/25 20:56 Procedures Laceration Laceration 1: Date: 02/09/25 Time: 23:10 Site: hand Side (If applicable): right Description: linear Depth: simple, single layer Local Anesthetic: none Pre-repair: wound explored, irrigated and other (antiseptic used in triage) ====== Skin Level ====== Skin layer closed with: dermabond ====== Subcutaneous Layer ====== ====== Muscle Layer ====== ====== Tendon Layer ====== Dressincm lac overlying right middle, 1cm overlying right index finger MDM - Wound/Laceration MDM Narrative Medical decision making narrative: Right hand dominant female Patient presents with two 1cm superficial lacerations overlying right index finger and middle finger. In the emergency department they are afebrile with vital signs within normal limits. Patient cannot recall last tetanus shot; will update. Given analgesic medication and wounds irrigated at bedside by me and repaired with skin glue as above. Patient tolerates well without complication. Discharged with Rx for APAP. Differential Diagnosis Differential diagnosis: Likely laceration Discharge Plan Discharge Clinical Impression: Laceration of right index finger, Laceration of right middle finger Patient Disposition: Home Condition: Stable Instructions: Antibiotic Form, Laceration (ED), Skin Adhesive Care (ED) Additional Instructions: Your tetanus shot was updated today. Patient Language: Divehi Prescriptions: New acetaminophen 500 mg capsule 1,000 mg PO Q6H PRN (Reason: pain) Qty: 30 0RF No Action tamoxifen 20 mg tablet 20 mg PO DAILY budesonide-formoterol [Symbicort] 160-4.5 mcg/actuation HFA aerosol inhaler 2 puff inhalation Q12H Qty: 10.2 5RF albuterol sulfate [ProAir HFA] 90 mcg/actuation HFA aerosol inhaler 1 inh inhalation Q4H PRN (Reason: shortness of breath or wheezing) Qty: 8.5 0RF cholecalciferol (vitamin D3) 50 mcg (2,000 unit) capsule 50 mcg PO BID calcium carbonate [Calcium 600] 600 mg calcium (1,500 mg) tablet 600 mg PO DAILY albuterol sulfate 2.5 mg /3 mL (0.083 %) solution for nebulization 2.5 mg inhalation Q6H Qty: 75 0RF lisinopril-hydrochlorothiazide 10-12.5 mg tablet See Rx Instructions .ROUTE .COMPLEX Qty: 90 1RF Dose Instruction: TAKE 1 TABLET BY MOUTH DAILY Rx Instructions: TAKE 1 TABLET BY MOUTH DAILY fenofibrate 160 mg tablet 160 mg PO DAILY Qty: 30 5RF montelukast 10 mg tablet See Rx Instructions .ROUTE .COMPLEX Qty: 90 1RF Dose Instruction: TAKE 1 TABLET BY MOUTH EVERY DAY Rx Instructions: TAKE 1 TABLET BY MOUTH EVERY DAY rosuvastatin 10 mg tablet 10 mg PO DAILY Qty: 30 4RF metformin 500 mg tablet 500 mg PO BIDWMEAL Qty: 180 1RF Follow-up/Referrals: Barbara Coleman MD [Primary Care Provider] - Stand Alone Forms: Work/School Release IP Time of Disposition: 23:21
[2025-02-09] MEDS: ACETAMINOPHEN 500 MG TABLET 1000 MG PO (23:10)
[2025-02-09] MEDS: TETANUS,DIPHTHERIA,AC PERTUSSIS ADULT (0.5 ML) BOOSTRIX IM (23:11)
[2025-02-09 23:24] VITALS: BP 128/74; PULSE 84; RESP 16; O2SAT 99
== END 2025-02-09 23:28 | disposition home or self-care (01) ==
PROVIDERS: Emergency Provider Student in an Organized Health Care Education/Training Program; PCP Family Medicine
DX: S61.210A Laceration without foreign body of right index finger without damage to nail, initial encounter (principal); S61.212A Laceration without foreign body of right middle finger without damage to nail, initial encounter; I10 Essential (primary) hypertension; Z85.3 Personal history of malignant neoplasm of breast; W26.0XXA Contact with knife, initial encounter
CPT/HCPCS: 12001; 90471; 90715; 99283; A9270